=== PATIENT | female | born 1940 | race Asian ===

== ENCOUNTER → 2016-08-12 | Outpatient (CLI) | payer MEDICARE, OTHER | LOC: COL.RAD 08:12 | DX: M50.01 Cervical disc disorder with myelopathy, high cervical region (principal); M25.78 Osteophyte, vertebrae ==

== ENCOUNTER → 2017-02-20 | Outpatient (CLI) | payer MEDICARE, OTHER | LOC: MC.RAD 08:20 | DX: Z12.31 Encounter for screening mammogram for malignant neoplasm of breast (principal) ==

== ENCOUNTER 2017-12-16 07:39 | Day surgery (SDC) | payer MEDICARE, OTHER ==
[~2017-12-16] VITALS: Ht 142.2 cm; Wt 59.4 kg
[2017-12-16 08:16] VITALS: BP 141/76; PULSE 68; TEMP 97.9
[2017-12-16] MEDS ORDERED: MICARDIS HCT 251 TAB PO (08:24)
[2017-12-16] MEDS ORDERED: MAG-OX 400400 MG/TAB PO (08:25)
[2017-12-16] MEDS ORDERED: LUTEIN 15 MG-0.1 SGL PO (08:26)
[2017-12-16] MEDS ORDERED: CALCIUM 600/VIT1 CAP PO (08:26)
[2017-12-16] MEDS ORDERED: FLAX OIL1000 MG PO (08:27)
[2017-12-16] MEDS ORDERED: VITAMIND3 5000 PO (08:28)
[2017-12-16 10:15] VITALS: BP 120/65; PULSE 65
[2017-12-16 10:30] VITALS: BP 124/85; PULSE 78; TEMP 97.4
[2017-12-16 10:45] VITALS: BP 116/72; PULSE 65
[2017-12-16 11:00] VITALS: BP 131/69; PULSE 63
== END 2017-12-16 11:35 | disposition home or self-care (01) ==
LOC: SDCO 07:39
DX: K57.30 Diverticulosis of large intestine without perforation or abscess without bleeding (principal); K64.4 Residual hemorrhoidal skin tags; I10 Essential (primary) hypertension; Z90.710 Acquired absence of both cervix and uterus; Z86.010 Personal history of colon polyps
CPT/HCPCS: J2250; J3010; J7030

== ENCOUNTER → 2018-02-23 | Outpatient (CLI) | payer MEDICARE, OTHER ==
[~2018-02-23] MED LIST: CALCIUM 600/VIT1 CAP PO; FLAXSEED OIL1000 MG PO; LUTEIN 15 MG-0.1 SGL PO; MAG-OX 400400 MG/TAB PO; MICARDIS HCT 251 TAB PO; VITAMIND3 5000 PO
== END ==
LOC: MC.RAD 07:10
DX: Z12.31 Encounter for screening mammogram for malignant neoplasm of breast (principal)

== ENCOUNTER → 2018-02-26 | Outpatient (CLI) | payer MEDICARE, OTHER ==
[~2018-02-26] VITALS: Ht 142.2 cm; Wt 60.7 kg
[2018-02-26 12:25] VITALS: BP 166/89; PULSE 83
[2018-02-26 13:10] VITALS: BP 161/92; PULSE 74
== END ==
LOC: COL.RAD 12:00
DX: R20.2 Paresthesia of skin (principal); R53.1 Weakness
CPT/HCPCS: J1100

== ENCOUNTER → 2018-06-29 | Outpatient (CLI) | payer MEDICARE, OTHER ==
[~2018-06-29] VITALS: Ht 142.2 cm; Wt 59.3 kg
[~2018-06-29] MED LIST changes: +OMEGA-3 1000 MG1 CAP PO
[2018-06-29 12:18] VITALS: BP 159/86; PULSE 69
[2018-06-29 13:55] VITALS: BP 161/82; PULSE 66
== END ==
LOC: COL.RAD 11:35
DX: M48.02 Spinal stenosis, cervical region (principal)
CPT/HCPCS: J1100; Q9965

== ENCOUNTER → 2019-03-02 | Outpatient (CLI) | payer MEDICARE, OTHER | LOC: MC.RAD 09:23 | DX: Z12.31 Encounter for screening mammogram for malignant neoplasm of breast (principal) ==

== ENCOUNTER → 2020-03-20 | Outpatient (CLI) | payer MEDICARE, OTHER | LOC: MC.RAD 13:39 | DX: Z12.31 Encounter for screening mammogram for malignant neoplasm of breast (principal) ==

== ENCOUNTER → 2021-06-08 | Outpatient (CLI) | payer MEDICARE, OTHER | LOC: MC.RAD 08:21 | DX: Z12.31 Encounter for screening mammogram for malignant neoplasm of breast (principal) ==

== ENCOUNTER → 2022-08-07 | Outpatient (CLI) | payer MEDICARE, OTHER | LOC: MC.RAD 07-25 08:30 | DX: Z12.31 Encounter for screening mammogram for malignant neoplasm of breast (principal) ==

== ENCOUNTER 2023-09-04 13:50 | Outpatient (CLI) | payer MEDICARE, OTHER ==
[~2023-09-04] VITALS: Ht 142.2 cm; Wt 57.2 kg
[2023-09-04 14:14] VITALS: BP 116/65; PULSE 82; TEMP 97.9
[2023-09-04] MEDS ORDERED: Denosumab 60 MG/ML SYRINGE SQ ONE (14:15)
== END 2023-09-04 14:22 ==
LOC: EUO 13:50
DX: M81.0 Age-related osteoporosis without current pathological fracture (principal)
CPT/HCPCS: J0897